=== PATIENT | male | born 1980 | race Caucasian/White ===

== ENCOUNTER 2016-10-13 21:39 | Emergency (ER) | payer OTHER ==
[~2016-10-13] VITALS: Ht 172.7 cm; Wt 63.5 kg
[2016-10-13 21:45] VITALS: BP 134/78
[2016-10-13] MEDS ORDERED: KETOROLAC TROMETHAMINE 30 MG/ML INJ. ONE (22:27)
[2016-10-13] MEDS ORDERED: SULF1TAB23 PO (22:47)
[2016-10-13] MEDS ORDERED: HYDR-971 PO (22:48)
--- NOTE | 2016-10-13 22:48 | PHYS DOC ---
Adult General Chief Complaint Chief Complaint: ABSCESS HPI HPI Patient is a 36 year old male who presents stating he has something growing on the tip of his coccyx for 2 days. Patient denies any fever. Denies any previous history of pilonidal cyst. Review of Systems Review of Systems Constitutional: Denies fever or chills [] Eyes: Denies change in visual acuity, redness, or eye pain [] Musculoskeletal: Denies back pain or joint pain [] Integument: Possible pilonidal cyst. Neurologic: Denies headache, focal weakness or sensory changes [] Endocrine: Denies polyuria or polydipsia [] Current Medications Current Medications Current Medications Medications (Trade) Dose Ordered Sig/Stuart Start Time Stop Time Status Last Admin Dose Admin Diphtheria/ Tetanus/Acell Pertussis (Boostrix) 0.5 ml ONCE ONCE 10/13/16 23:00 10/13/16 23:01 10/13/16 22:37 0.5 ML Ketorolac Tromethamine (Toradol Im) 60 mg 1X ONCE 10/13/16 23:00 10/13/16 23:01 10/13/16 22:37 60 MG Ketorolac Tromethamine (Toradol) 30 mg STK-MED ONCE 10/13/16 22:27 10/13/16 22:28 DC Allergies Allergies Allergies Coded Allergies Type Severity Reaction Last Updated Verified cephalexin Allergy Intermediate hives 10/13/16 Yes Physical Exam Physical Exam Constitutional: Well developed, well nourished, no acute distress, non-toxic appearance. [] HENT: Normocephalic, atraumatic, bilateral external ears normal, oropharynx moist, no oral exudates, nose normal. [] Eyes: PERRLA, EOMI, conjunctiva normal, no discharge. [] Skin: Coccyx with a tiny pimple suspicious of a pilonidal cyst. There is no fluctuance to the area. There is no erythema to the area. There is no warmth to the area. The area is very tender to touch. Back: No tenderness, no CVA tenderness. [] Extremities: No tenderness, no cyanosis, no clubbing, ROM intact, no edema. [] Neurologic: Alert and oriented X 3, normal motor function, normal sensory function, no focal deficits noted. [] Psychologic: Affect normal, judgement normal, mood normal. [] EKG EKG [] Radiology/Procedures Radiology/Procedures [] Course & Med Decision Making Course & Med Decision Making Pertinent Labs and Imaging studies reviewed. (See chart for details) Patient has a possible pilonidal cyst forming on his coccyx, the cyst is not ready to be drained. He was given tetanus in the ED. He was discharged with Bactrim for 10 days. Follow-up with his own doctor or the provided general surgeon in 3-7 days. Warm compresses recommended to the area. Dragon Disclaimer Dragon Disclaimer This electronic medical record was generated, in whole or in part, using a voice recognition dictation system. Departure Departure Impression: Primary Impression: Pilonidal cyst Disposition: 01 HOME, SELF-CARE Condition: STABLE Referrals: MARVIN BRICEÑO (PCP) MONICO CHÁVEZ MD see in the next 3-7 days or your own doctor Patient Instructions: Pilonidal Cyst Additional Instructions: You have a cyst on your rectal area, the cyst is not ready to be drained. Please follow-up with the provided general surgeon or your primary care doctor in the next 3-7 days. Complete your antibiotics. Scripts Hydrocodone/Apap 5-325 (NORCO 5-325 TABLET) 1 Each Tablet 1-2 TAB PO Q4-6HRS, #20 TAB Prov: ZAC MOLINA APRN 10/13/16 Sulfamethoxazole/Trimethoprim (BACTRIM 400-80 MG TABLET) 1 Each Tablet 1 TAB PO BID, #20 TAB Prov: ZAC MOLINA APRN 10/13/16 ZAC MOLINA APRN Oct 13, 2016 22:48
[2016-10-13] MEDS ORDERED: DIPHTH,PERTUSS(ACELL),TET TOX 0.5 ML DISP.SYRIN. VAX IM ONE (23:00)
[2016-10-13] MEDS ORDERED: KETOROLAC TROMETHAMINE 60 MG/2 ML INJ. IM ONE (23:00)
== END 2016-10-13 22:51 | disposition home or self-care (01) ==
LOC: ER 21:39
DX: L05.91 Pilonidal cyst without abscess (principal); Z23 Encounter for immunization
CPT/HCPCS: 90471; 90715; 96372; 99284; J1885

== ENCOUNTER 2020-01-11 13:08 | Inpatient (IN) | payer SELFPAY ==
[2020-01-11] VITALS (9 sets, daily range): BP systolic 136–187; BP diastolic 66–97
[~2020-01-11] VITALS: Ht 180.3 cm; Wt 76.2 kg
[~2020-01-11 13:08] MED LIST: HYDR-3164 PO; SULF1TAB23 PO
[2020-01-11] MEDS ORDERED: IV NORMAL SALINE 1000ML BAG 1,000 ML IV ONE ×3 (14:00→18:00)
[2020-01-11 14:05] LABS: BASO % 0 % (0-3); EOS % 0 % (0-3); HEMATOCRIT 32.8 % (39.0-53.0); HEMOGLOBIN 9.9 g/dL (13.0-17.5); LYMPH # 0.4 x10^3/uL (1.0-4.8); LYMPH % 3 % (24-48); MEAN CORPUSCULAR HEMOGLOBIN 29 pg (25-35); MEAN CORPUSCULAR HGB CONC 30 g/dL (31-37); MEAN CORPUSCULAR VOLUME 98 fL (79-100); MONO # 0.4 x10^3/uL (0.0-1.1); MONO % 3 % (0-9); NEUT # 12.3 x10^3/uL (1.8-7.7); NEUT % 94 % (31-73); PLATELET COUNT 240 x10^3/uL (140-400); RED BLOOD COUNT 3.37 x10^6/uL (4.30-5.70); RED CELL DISTRIBUTION WIDTH 13.5 % (11.5-14.5); WHITE BLOOD COUNT 13.1 x10^3/uL (4.0-11.0)
[2020-01-11 14:21] LABS: ALBUMIN 1.7 g/dL (3.4-5.0); ALBUMIN/GLOBULIN RATIO 0.4 (1.0-1.7); CALCIUM 6.8 mg/dL (8.5-10.1); CREATININE 6.6 mg/dL (0.7-1.3); GFR 9.4; POTASSIUM 5.9 mmol/L (3.5-5.1); TOTAL BILIRUBIN 0.2 mg/dL (0.2-1.0); TOTAL PROTEIN 5.8 g/dL (6.4-8.2)
[2020-01-11] MEDS ORDERED: ONDANSETRON PF 4 MG/2 ML VIAL. IVP ONE (14:30)
[2020-01-11] MEDS ORDERED: POTASSIUM CHLORIDE 10MEQ 100 ML IV PRN ×3 (14:45)
[2020-01-11] MEDS ORDERED: INSULIN,REGULAR 100 UNIT DRIP 100 ML IV ONE (15:00)
[2020-01-11 15:20] LABS: % BANDS 2 % (0-9); % LYMPHS 2 % (24-48); % MONOS 2 % (0-10); % SEGS 94 % (35-66); PLATELET CLUMP PRESENT; PLT ESTIMATE ADEQUATE (ADEQUATE); TOXIC GRANULATION SLIGHT; TOXIC VACUOLATION SLIGHT
--- NOTE | 2020-01-11 15:39 | EKG ---
[facility] [address] [place] [address] Test Date: 2020-01-11 Test Time: 15:00:27 Pat Name: LORETTA PURCELL Department: Room: Gender: M Rn Urgent Care: : 1980 Requested By: ZAC MOLINA Order Number: [id number] Reading MD: Measurements Intervals [place] Rate: 85 P: 45 AL: 132 QRS: -24 QRSD: 82 T: 49 QT: 380 QTc: 452 Interpretive Statements SINUS RHYTHM LEFTWARD AXIS QRS(T) CONTOUR ABNORMALITY CONSISTENT WITH ANTEROSEPTAL INFARCT AGE UNDETERMINED ABNORMAL ECG RI6.02 No previous ECG available for comparison
[2020-01-11 16:45] LABS: CALCIUM 6.7 mg/dL (8.5-10.1); CREATININE 6.3 mg/dL (0.7-1.3); GFR 9.9; POTASSIUM 4.8 mmol/L (3.5-5.1)
[2020-01-11 16:56] LABS: BILIRUBIN,URINE NEGATIVE (NEG); CLARITY,URINE CLEAR; COLOR,URINE YELLOW; NITRITE,URINE NEGATIVE (NEG); PROTEIN,URINE >=300 mg/dL (NEG-TRACE); UROBILINOGEN,URINE 0.2 mg/dL (0.2 mg/dL)
[2020-01-11 17:01] LABS: BARBITURATES NEG (NEG); BENZODIAZEPINES POS (NEG); CANNABINOIDS NEG (NEG); COCAINE NEG (NEG); METHADONE NEG (NEG); OPIATES NEG (NEG); PHENCYCLIDINE NEG (NEG)
[2020-01-11 17:05] LABS: AMPHETAMINE/METHAMPHETAMINE POS (NEG)
[2020-01-11 17:17] LABS: BACTERIA,URINE 0 /HPF (0-FEW); RBC,URINE OCC /HPF (0-2); WBC,URINE RARE /HPF (0-4)
[2020-01-11 17:51] LABS: CALCIUM 6.8 mg/dL (8.5-10.1); CREATININE 6.5 mg/dL (0.7-1.3); GFR 9.5; POTASSIUM 4.4 mmol/L (3.5-5.1)
[2020-01-11] MEDS ORDERED: ACETAMINOPHEN 325 MG TABLET. PO PRN (18:00)
[2020-01-11] MEDS ORDERED: ONDANSETRON PF 4 MG/2 ML VIAL. IV PRN (18:00)
--- NOTE | 2020-01-11 18:00 | NUR ---
Patient admitted to room 107 from ED with HHNK and hyponatremia. Patient is A/O x4 but impulsive. Consult called to Dr Griffith. Orders received to follow DKA protocol with lab draws Q2HRS. Caban placed with 550ml out at time of placement.
--- NOTE | 2020-01-11 18:06 | PHYS DOC ---
Past Medical History Past Medical History: Diabetes-Type I Additional Past Medical Histor: NEUROPATHY, STAGE 2 KIDNEY DISEASE (ZAC MOLINA APRN) Past Surgical History: No Surgical History (ZAC MOLINA APRN) Smoking Status: Current Every Day Smoker Alcohol Use: Occasionally Drug Use: None (ZAC MOLINA APRN) General Adult EDM: Chief Complaint: HYPERGLYCEMIA HPI: HPI: Patient is a 40 year old male with history of diabetes type 1 on insulin, who presents to the ED today to be evaluated for hyperglycemia. Patient reports his home glucometer was not able to read his glucose because it was very high. Patient states he used to be on Lantus and was switched over to a different insulin which he has not used for unknown period of time. Patient states this morning he started having nausea and vomiting. [] (ZAC MOLINA APRN) Review of Systems: Review of Systems: Constitutional: Denies fever or chills. [] Eyes: Denies change in visual acuity. [] HENT: Denies nasal congestion or sore throat. [] Respiratory: Denies cough or shortness of breath. [] Cardiovascular: Denies chest pain or edema. [] GI: Reports nausea and vomiting. Denies abdominal pain, bloody stools or diarrhea. [] : Denies dysuria. [] Musculoskeletal: Denies back pain or joint pain. [] Integument: Denies rash. [] Neurologic: Denies headache, focal weakness or sensory changes. [] Endocrine: Reports hypoglycemia Lymphatic: Denies swollen glands. [] Psychiatric: Denies depression or anxiety. [] (ZAC MOLINA APRN) Heart Score: Risk Factors: Risk Factors: DM, Current or recent (<one month) smoker, HTN, HLP, family history of CAD, obesity. Risk Scores: Score 0 - 3: 2.5% MACE over next 6 weeks - Discharge Home Score 4 - 6: 20.3% MACE over next 6 weeks - Admit for Clinical Observation Score 7 - 10: 72.7% MACE over next 6 weeks - Early Invasive Strategies (ZAC MOLINA APRN) Current Medications: Current Medications Medications (Trade) Dose Ordered Sig/Stuart Start Time Stop Time Status Last Admin Dose Admin Insulin Human Regular 100 ml @ 18 mls/hr 1X ONCE 01/11/20 15:00 01/11/20 15:01 DC 01/11/20 15:22 18 MLS/HR Insulin Human Regular 100 unit/ Sodium Chloride 101 ml @ 0 mls/hr CONT PRN PRN 01/11/20 14:45 Ondansetron HCl (Zofran) 4 mg 1X ONCE 01/11/20 14:30 01/11/20 14:31 DC 01/11/20 14:07 4 MG Potassium Chloride/Water 100 ml @ 100 mls/hr PRN Q1HR PRN 01/11/20 14:45 Sodium Chloride 1,000 ml @ 1,000 mls/hr 1X ONCE 01/11/20 14:00 01/11/20 14:59 DC 01/11/20 14:06 1,000 MLS/HR (ZAC MOLINA [employer]LO[employer] CREATIVE CHAIRMAN) Allergies: Allergies: Allergies Coded Allergies Type Severity Reaction Last Updated Verified cephalexin Allergy Intermediate hives 10/13/16 Yes (ZAC MOLINA [employer]IVE CHAIRMAN) Physical Exam: PE: Constitutional: Well developed, well nourished, no acute distress, non-toxic appearance. [] HENT: Normocephalic, atraumatic, bilateral external ears normal, oropharynx moist, no oral exudates, nose normal. [] Eyes: PERRLA, EOMI, conjunctiva normal, no discharge. [] Neck: Normal range of motion, no tenderness, supple, no stridor. [] Cardiovascular:Heart rate regular rhythm, no murmur [] Lungs & Thorax: Bilateral breath sounds clear to auscultation [] Abdomen: Bowel sounds normal, soft, no tenderness, no masses, no pulsatile masses. [] Skin: Warm, dry, no erythema, no rash. [] Back: No tenderness, no CVA tenderness. [] Extremities: No tenderness, no cyanosis, no clubbing, ROM intact, +1 pedal edema Neurologic: Alert and oriented X 3, normal motor function, normal sensory function, no focal deficits noted. Hard to follow directions at times. Psychologic: Affect normal, judgement normal, mood normal. [] (MUTUNGA,ZAC [employer]LO[employer] CREATIVE CHAIRMAN) Current Patient Data: Labs: Laboratory Tests Test 01/11/20 13:25 01/11/20 16:17 01/11/20 16:33 01/11/20 17:31 White Blood Count 13.1 x10^3/uL (4.0-11.0) H Red Blood Count 3.37 x10^6/uL (4.30-5.70) L Hemoglobin 9.9 g/dL (13.0-17.5) L Hematocrit 32.8 % (39.0-53.0) L Mean Corpuscular Volume 98 fL (79-100) Mean Corpuscular Hemoglobin 29 pg (25-35) Mean Corpuscular Hemoglobin Concent 30 g/dL (31-37) L Red Cell Distribution Width 13.5 % (11.5-14.5) Platelet Count 240 x10^3/uL (140-400) Neutrophils (%) (Auto) 94 % (31-73) H Lymphocytes (%) (Auto) 3 % (24-48) L Monocytes (%) (Auto) 3 % (0-9) Eosinophils (%) (Auto) 0 % (0-3) Basophils (%) (Auto) 0 % (0-3) Neutrophils # (Auto) 12.3 x10^3/uL (1.8-7.7) H Lymphocytes # (Auto) 0.4 x10^3/uL (1.0-4.8) L Monocytes # (Auto) 0.4 x10^3/uL (0.0-1.1) Eosinophils # (Auto) 0.0 x10^3/uL (0.0-0.7) Basophils # (Auto) 0.0 x10^3/uL (0.0-0.2) Segmented Neutrophils % 94 % (35-66) H Band Neutrophils % 2 % (0-9) Lymphocytes % 2 % (24-48) L Monocytes % 2 % (0-10) Toxic Granulation Slight Toxic Vacuolation Slight Platelet Estimate Adequate (ADEQUATE) Platelet Clumps, EDTA Present Sodium Level 107 mmol/L (136-145) *L 111 mmol/L (136-145) *L 114 mmol/L (136-145) *L Potassium Level 5.9 mmol/L (3.5-5.1) H 4.8 mmol/L (3.5-5.1) # 4.4 mmol/L (3.5-5.1) Chloride Level 73 mmol/L (98-107) L 78 mmol/L (98-107) L 80 mmol/L (98-107) L Carbon Dioxide Level 26 mmol/L (21-32) 26 mmol/L (21-32) 26 mmol/L (21-32) Anion Gap 8 (6-14) 7 (6-14) 8 (6-14) Blood Urea Nitrogen 93 mg/dL (8-26) H 99 mg/dL (8-26) H 97 mg/dL (8-26) H Creatinine 6.6 mg/dL (0.7-1.3) H 6.3 mg/dL (0.7-1.3) H 6.5 mg/dL (0.7-1.3) H Estimated GFR (Cockcroft-Gault) 9.4 9.9 9.5 BUN/Creatinine Ratio 14 (6-20) Glucose Level 1864 mg/dL (70-99) *H 1620 mg/dL (70-99) *H 1477 mg/dL (70-99) *H Calcium Level 6.8 mg/dL (8.5-10.1) L 6.7 mg/dL (8.5-10.1) L 6.8 mg/dL (8.5-10.1) L Phosphorus Level 8.7 mg/dL (2.6-4.7) H Total Bilirubin 0.2 mg/dL (0.2-1.0) Aspartate Amino Transferase (AST) 101 U/L (15-37) H Alanine Aminotransferase (ALT) 65 U/L (16-63) H Alkaline Phosphatase 146 U/L (46-116) H Total Protein 5.8 g/dL (6.4-8.2) L Albumin 1.7 g/dL (3.4-5.0) L Albumin/Globulin Ratio 0.4 (1.0-1.7) L Lipase 105 U/L (73-393) Ethyl Alcohol Level < 10 mg/dL (0-10) Acetone Level Neg (NEG) Urine Collection Type Unknown Urine Color Yellow Urine Clarity Clear Urine pH 7.0 (<5.0-8.0) Urine Specific [place] 1.025 (1.000-1.030) Urine Protein >=300 mg/dL (NEG-TRACE) Urine Glucose (UA) >=1000 mg/dL (NEG) Urine Ketones (Stick) Negative mg/dL (NEG) Urine Blood Large (NEG) Urine Nitrite Negative (NEG) Urine Bilirubin Negative (NEG) Urine Urobilinogen Dipstick 0.2 mg/dL (0.2 mg/dL) Urine Leukocyte Esterase Negative (NEG) Urine RBC Occ /HPF (0-2) Urine WBC Rare /HPF (0-4) Urine Squamous Epithelial Cells None /LPF Urine Bacteria 0 /HPF (0-FEW) Urine Opiates Screen Neg (NEG) Urine Methadone Screen Neg (NEG) Urine Barbiturates Neg (NEG) Urine Phencyclidine Screen Neg (NEG) Urine Amphetamine/Methamphetamine Pos (NEG) Urine Benzodiazepines Screen Pos (NEG) Urine Cocaine Screen Neg (NEG) Urine Cannabinoids Screen Neg (NEG) Urine Ethyl Alcohol Neg (NEG) Laboratory Tests 01/11/20 13:25 Laboratory Tests 01/11/20 13:25 01/11/20 16:17 01/11/20 17:31 Vital Signs: Vital Signs Date Time Temp Pulse Resp B/P (MAP) Pulse Ox O2 Delivery O2 Flow Rate FiO2 01/11/20 17:48 88 16 171/88 (115) 99 Room Air 01/11/20 13:13 97.7 97.7 (ZAC MOLINA APRN) EKG: EK interpreted by Dr. Ferreira sinus rhythm HR 85 no STEMI[] (ZAC MOLINA APRN) Radiology/Procedures: Radiology/Procedures: [] (ZAC MOLINA APRN) Course & Med Decision Making: Course & Med Decision Making Pertinent Labs and Imaging studies reviewed. (See chart for details) This is a type I diabetic patient presenting to the ED today with hyperglycemia and nausea and vomiting since this morning. It is unknown when he last used his insulin. He appears noncompliant. CBC with a WBC of 13.1, hemoglobin 9.9, hematocrit 32.8. CMP with glucose of 1846, anion gap is 8, creatinine 6.6, BUN 93, potassium 5.9, uncorrected sodium of 107. Vitals temperature 97.7, heart rate 87, respiration 18, blood pressure 184/96, O2 sats 96% on room air. Patient was started of DKA protocol, 2 L of IV fluids were infused in the ED. Spoke with Dr. Griffith nephrology who will follow up with patient Spoke with Dr. Villatoro who accepted patient for admission (ZAC MOLINA APRN) Dragon Disclaimer: Dragon Disclaimer: This electronic medical record was generated, in whole or in part, using a voice recognition dictation system. (ZAC MOLINA APRN) Departure Departure Impression: Primary Impression: DKA (diabetic ketoacidoses) Qualified Codes: E10.10 - Type 1 diabetes mellitus with ketoacidosis without coma Additional Impressions: Acute renal failure Qualified Codes: N17.9 - Acute kidney failure, unspecified Anemia Qualified Codes: D64.9 - Anemia, unspecified Disposition: ADMITTED INPATIENT Condition: STABLE Referrals: MARVIN BRICEÑO (PCP) Justicifation of Admission Dx: Justifications for Admission: Justification of Admission Dx: Yes Acute Renal Failure: 3-Fold Rise in Serum Crea DKA: DKA (ZAC MOLINA APRN) Attending Signature Attending Signature I have reviewed the PA/INCOME TAX ADJUSTER's note and plan of care. I was available for consultation as needed during the patient's visit in the emergency department. I agree with the clinical impression, plan, and disposition. (ÁNGEL FERREIRA DO) ZAC MOLINA APRN Jan 11, 2020 18:06 ÁNGEL FERREIRA DO Jan 12, 2020 06:23
[2020-01-11] MEDS: IV NORMAL SALINE 1000ML BAG 1,000 ML IV SCH ×2 (18:30→22:30)
[2020-01-11] MEDS ORDERED: hydrALAZINE 20 MG/ML VIAL. IVP PRN (19:15)
[2020-01-11] MEDS: POTASSIUM CHLORIDE 10MEQ 100 ML IV SCH ×4 (19:21→23:00)
--- NOTE | 2020-01-11 19:59 | HP ---
ADMIT DATE: 01/11/2020 CHIEF COMPLAINT: Hyperglycemia. HISTORY OF PRESENT ILLNESS: The patient is a pleasant 40-year-old male who does not take his insulin. He came to the ER with severely high glucose. It is actually the highest I have seen at 1864. Surprisingly, he does not have an anion gap metabolic acidosis. He does have severe profound hyponatremia with a sodium of 107. I discussed the case with ER physician. We are going to admit the patient with DKA protocol on insulin drip and IV fluids. It should be noted that the patient is very weak, can barely talk, but he does complain of weakness. PAST MEDICAL HISTORY: Noncompliance, diabetes, neuropathy, tobacco abuse. ALLERGIES: CEPHALEXIN. FAMILY HISTORY: Diabetes. SOCIAL HISTORY: I think he works at ____. He does not drink or take drugs. MEDICATIONS: Reviewed, please refer to the MRAD. REVIEW OF SYSTEMS: Unable to obtain. The patient really cannot talk much. PHYSICAL EXAMINATION: VITALS: Within normal limits and are stable. GENERAL: He is extremely weak and he can barely talk. HEENT: Normal cephalic atraumatic, external auditory canals are patent EYES: Extraocular muscles are intact, pupils are equally round and reactive to light and accommodation MUSCULOSKELETAL: Well developed, well nourished, good range of motion ENDOCRINE: No thyromegaly was palpated LYMPHATICS: No cervical chain or axillary nodes were noted HEMATOPOIETIC: No bruising NECK: Supple, no JVD, no thyromegaly was noted. LUNGS: Clear to auscultation in all lung gagnon without rhonchi or wheezing. HEART: RRR, S1, S2 present. Peripheral pulses intact, no obvious murmurs were noted. ABDOMEN: Soft, nontender. Positive bowel sounds no organomegaly, normal bowel sounds. EXTREMITIES: Without any cyanosis, clubbing, or edema. Pedal pulses intact, Homans sign is negative. NEUROLOGIC: He is extremely weak, he can barely talk. PSYCHIATRIC: He seems depressed. SKIN: No ulcerations or rashes, good skin turgor, no jaundice. VASCULAR: Good capillary refill, neurovascular bundle appears to be intact. LABORATORY DATA: White count 13, hemoglobin 9.9, platelets 240. Electrolytes: Sodium 107, potassium 5.9, chloride 73, bicarbonate 26, BUN 93, creatinine 6.6, glucose 1864. ASSESSMENT AND PLAN: Severe hyperglycemia with severe hyponatremia, although I suspect the patient will be admitted to the ICU on insulin drip, IV fluids, DKA protocol, home meds, DVT prophylaxis. Full code. Consult Dr. Freitas. Serial phosphorus and magnesium levels, p.r.n. Tylenol, p.r.nMarquez Lewis. Serum osmolality. LONG-TERM PROGNOSIS: Guarded. MARIAN BALTAZAR DO DR: TERESA/michell JOB#: [id number] / [id number]
[2020-01-11] MEDS: INSULIN REGULAR VIAL 100 UNIT in IV NORMAL SALINE 100ML 100 ML IV PRN (20:06)
[2020-01-11 20:47] LABS: CALCIUM 7.2 mg/dL (8.5-10.1); CREATININE 6.3 mg/dL (0.7-1.3); GFR 9.9; MAGNESIUM 2.6 mg/dL (1.8-2.4); POTASSIUM 4.2 mmol/L (3.5-5.1)
[2020-01-11 22:29] LABS: CALCIUM 7.2 mg/dL (8.5-10.1); CREATININE 6.2 mg/dL (0.7-1.3); GFR 10.1; MAGNESIUM 2.5 mg/dL (1.8-2.4); PHOSPHORUS 5.6 mg/dL (2.6-4.7); POTASSIUM 3.7 mmol/L (3.5-5.1)
[2020-01-12] VITALS (19 sets, daily range): BP systolic 124–173; BP diastolic 59–100
[2020-01-12 01:08] LABS: CALCIUM 7.1 mg/dL (8.5-10.1); CREATININE 6.1 mg/dL (0.7-1.3); GFR 10.3; MAGNESIUM 2.2 mg/dL (1.8-2.4); PHOSPHORUS 4.6 mg/dL (2.6-4.7); POTASSIUM 3.6 mmol/L (3.5-5.1)
[2020-01-12] MEDS: POTASSIUM CHLORIDE 10MEQ 100 ML IV SCH ×3 (01:37→04:30)
[2020-01-12] MEDS: MORPHINE SULFATE 2 MG/ML VIAL. IV PRN ×3 (03:35→19:54)
[2020-01-12] MEDS: IV DEXTROSE 5% - 0.9 % NACL 1,000 ML IV SCH ×2 (04:30→08:31)
[2020-01-12 06:46] LABS: HEMATOCRIT 29.8 % (39.0-53.0); HEMOGLOBIN 10.2 g/dL (13.0-17.5); RED BLOOD COUNT 3.51 x10^6/uL (4.30-5.70); RED CELL DISTRIBUTION WIDTH 13.3 % (11.5-14.5); WHITE BLOOD COUNT 15.4 x10^3/uL (4.0-11.0)
[2020-01-12 07:00] LABS: ALBUMIN 1.5 g/dL (3.4-5.0); ALBUMIN/GLOBULIN RATIO 0.5 (1.0-1.7); CALCIUM 7.1 mg/dL (8.5-10.1); CREATININE 5.5 mg/dL (0.7-1.3); GFR 11.6; POTASSIUM 3.9 mmol/L (3.5-5.1); TOTAL BILIRUBIN 0.1 mg/dL (0.2-1.0); TOTAL PROTEIN 4.5 g/dL (6.4-8.2)
[2020-01-12] MEDS ORDERED: DEXTROSE 50% 25 GM / 50ML DISP.SYRIN. IV ONE (07:29)
[2020-01-12 07:34] LABS: MAGNESIUM 2.2 mg/dL (1.8-2.4); PHOSPHORUS 4.1 mg/dL (2.6-4.7)
[2020-01-12] MEDS ORDERED: DEXTROSE 50% 25 GM / 50ML DISP.SYRIN. IV PRN (07:45)
[2020-01-12] MEDS: INSULIN REGULAR VIAL 100 UNIT in IV NORMAL SALINE 100ML 100 ML IV PRN (07:57)
[2020-01-12] MEDS: INSULIN GLARGINE SYRINGE. SQ SCH ×2 (08:33→21:00)
[2020-01-12] MEDS ORDERED: INSULIN LISPRO 300 UNITS/3 ML VIAL. SQ SCH (09:00)
[2020-01-12] MEDS ORDERED: cefTRIAXone IV Push 1 GM VIAL. IVP SCH (09:00)
[2020-01-12] MEDS ORDERED: LOSA100T14 PO (09:33)
[2020-01-12] MEDS ORDERED: INSU100I13 SQ (09:33)
[2020-01-12] MEDS ORDERED: DIAZEPAM10 MG PO (09:33)
[2020-01-12] MEDS ORDERED: FURO20TA3 PO (09:33)
[2020-01-12] MEDS ORDERED: PRAM0.255 PO (09:33)
[2020-01-12] MEDS ORDERED: AMLO10TA8 PO (09:33)
[2020-01-12] MEDS ORDERED: INSU100V6 SQ (09:34)
--- NOTE | 2020-01-12 10:19 | PDOC ---
[employer] PROGRESS NOTE Date of Service DOS: DATE: 01/12/20 TIME: 10:17 Chief Complaint Chief Complaint Severe HONK Methamphetamine abuse Noncompliance Diabetes Chronic renal failure/acute kidney injury History of Present Illness History of Present Illness 01/12/2020 Patient seen and examined in the ICU His glucose is finally down to normal (was as high as 1864 yesterday) Chart reviewed Discussed with RN Vitals/I&O Vitals/I&O: Vital Signs Date Time Temp Pulse Resp B/P (MAP) Pulse Ox O2 Delivery O2 Flow Rate FiO2 01/12/20 10:00 84 14 139/61 (87) 98 Room Air 01/12/20 08:00 98.4 98.4 I & O 01/11/20 01/11/20 01/12/20 15:00 23:00 07:00 Intake Total 2150 ml 2200 ml Output Total 1700 ml 1875 ml Balance 450 ml 325 ml Physical Exam General: Cooperative Heart: Regular rate Lungs: Clear Abdomen: Normal bowel sounds Extremities: Other (1+ edema) Skin: No rashes Labs Labs: Laboratory Tests Test 01/11/20 13:25 01/11/20 16:17 01/11/20 16:33 01/11/20 17:31 White Blood Count 13.1 x10^3/uL (4.0-11.0) Red Blood Count 3.37 x10^6/uL (4.30-5.70) Hemoglobin 9.9 g/dL (13.0-17.5) Hematocrit 32.8 % (39.0-53.0) Mean Corpuscular Volume 98 fL (79-100) Mean Corpuscular Hemoglobin 29 pg (25-35) Mean Corpuscular Hemoglobin Concent 30 g/dL (31-37) Red Cell Distribution Width 13.5 % (11.5-14.5) Platelet Count 240 x10^3/uL (140-400) Neutrophils (%) (Auto) 94 % (31-73) Lymphocytes (%) (Auto) 3 % (24-48) Monocytes (%) (Auto) 3 % (0-9) Eosinophils (%) (Auto) 0 % (0-3) Basophils (%) (Auto) 0 % (0-3) Neutrophils # (Auto) 12.3 x10^3/uL (1.8-7.7) Lymphocytes # (Auto) 0.4 x10^3/uL (1.0-4.8) Monocytes # (Auto) 0.4 x10^3/uL (0.0-1.1) Eosinophils # (Auto) 0.0 x10^3/uL (0.0-0.7) Basophils # (Auto) 0.0 x10^3/uL (0.0-0.2) Segmented Neutrophils % 94 % (35-66) Band Neutrophils % 2 % (0-9) Lymphocytes % 2 % (24-48) Monocytes % 2 % (0-10) Toxic Granulation Slight Toxic Vacuolation Slight Platelet Estimate Adequate (ADEQUATE) Platelet Clumps, EDTA Present Sodium Level 107 mmol/L (136-145) 111 mmol/L (136-145) 114 mmol/L (136-145) Potassium Level 5.9 mmol/L (3.5-5.1) 4.8 mmol/L (3.5-5.1) 4.4 mmol/L (3.5-5.1) Chloride Level 73 mmol/L (98-107) 78 mmol/L (98-107) 80 mmol/L (98-107) Carbon Dioxide Level 26 mmol/L (21-32) 26 mmol/L (21-32) 26 mmol/L (21-32) Anion Gap 8 (6-14) 7 (6-14) 8 (6-14) Blood Urea Nitrogen 93 mg/dL (8-26) 99 mg/dL (8-26) 97 mg/dL (8-26) Creatinine 6.6 mg/dL (0.7-1.3) 6.3 mg/dL (0.7-1.3) 6.5 mg/dL (0.7-1.3) Estimated GFR (Cockcroft-Gault) 9.4 9.9 9.5 BUN/Creatinine Ratio 14 (6-20) Glucose Level 1864 mg/dL (70-99) 1620 mg/dL (70-99) 1477 mg/dL (70-99) Calcium Level 6.8 mg/dL (8.5-10.1) 6.7 mg/dL (8.5-10.1) 6.8 mg/dL (8.5-10.1) Phosphorus Level 8.7 mg/dL (2.6-4.7) 7.0 mg/dL (2.6-4.7) Total Bilirubin 0.2 mg/dL (0.2-1.0) Aspartate Amino Transf (AST/SGOT) 101 U/L (15-37) Alanine Aminotransferase (ALT/SGPT) 65 U/L (16-63) Alkaline Phosphatase 146 U/L (46-116) Total Protein 5.8 g/dL (6.4-8.2) Albumin 1.7 g/dL (3.4-5.0) Albumin/Globulin Ratio 0.4 (1.0-1.7) Lipase 105 U/L (73-393) Ethyl Alcohol Level < 10 mg/dL (0-10) Acetone Level Neg (NEG) Urine Collection Type Unknown Urine Color Yellow Urine Clarity Clear Urine pH 7.0 (<5.0-8.0) Urine Specific [place] 1.025 (1.000-1.030) Urine Protein >=300 mg/dL (NEG-TRACE) Urine Glucose (UA) >=1000 mg/dL (NEG) Urine Ketones (Stick) Negative mg/dL (NEG) Urine Blood Large (NEG) Urine Nitrite Negative (NEG) Urine Bilirubin Negative (NEG) Urine Urobilinogen Dipstick 0.2 mg/dL (0.2 mg/dL) Urine Leukocyte Esterase Negative (NEG) Urine RBC Occ /HPF (0-2) Urine WBC Rare /HPF (0-4) Urine Squamous Epithelial Cells None /LPF Urine Bacteria 0 /HPF (0-FEW) Urine Opiates Screen Neg (NEG) Urine Methadone Screen Neg (NEG) Urine Barbiturates Neg (NEG) Urine Phencyclidine Screen Neg (NEG) Urine Amphetamine/Methamphetamine Pos (NEG) Urine Benzodiazepines Screen Pos (NEG) Urine Cocaine Screen Neg (NEG) Urine Cannabinoids Screen Neg (NEG) Urine Ethyl Alcohol Neg (NEG) Magnesium Level 2.5 mg/dL (1.8-2.4) Test 01/11/20 19:15 01/11/20 20:25 01/11/20 22:00 01/11/20 23:52 Glucose Level 1246 mg/dL (70-99) 1010 mg/dL (70-99) 739 mg/dL (70-99) Sodium Level 122 mmol/L (136-145) 126 mmol/L (136-145) Potassium Level 4.2 mmol/L (3.5-5.1) 3.7 mmol/L (3.5-5.1) Chloride Level 86 mmol/L (98-107) 90 mmol/L (98-107) Carbon Dioxide Level 26 mmol/L (21-32) 26 mmol/L (21-32) Anion Gap 10 (6-14) 10 (6-14) Blood Urea Nitrogen 94 mg/dL (8-26) 93 mg/dL (8-26) Creatinine 6.3 mg/dL (0.7-1.3) 6.2 mg/dL (0.7-1.3) Estimated GFR (Cockcroft-Gault) 9.9 10.1 Calcium Level 7.2 mg/dL (8.5-10.1) 7.2 mg/dL (8.5-10.1) Phosphorus Level 6.0 mg/dL (2.6-4.7) 5.6 mg/dL (2.6-4.7) Magnesium Level 2.6 mg/dL (1.8-2.4) 2.5 mg/dL (1.8-2.4) Glucose (Fingerstick) 585 mg/dL (70-99) Test 01/12/20 00:20 01/12/20 00:59 01/12/20 02:02 01/12/20 03:07 Sodium Level 129 mmol/L (136-145) Potassium Level 3.6 mmol/L (3.5-5.1) Chloride Level 92 mmol/L (98-107) Carbon Dioxide Level 27 mmol/L (21-32) Anion Gap 10 (6-14) Blood Urea Nitrogen 88 mg/dL (8-26) Creatinine 6.1 mg/dL (0.7-1.3) Estimated GFR (Cockcroft-Gault) 10.3 Glucose Level 409 mg/dL (70-99) Calcium Level 7.1 mg/dL (8.5-10.1) Phosphorus Level 4.6 mg/dL (2.6-4.7) Magnesium Level 2.2 mg/dL (1.8-2.4) Glucose (Fingerstick) 397 mg/dL (70-99) 534 mg/dL (70-99) 300 mg/dL (70-99) Test 01/12/20 04:10 01/12/20 05:17 01/12/20 06:20 01/12/20 06:30 Glucose (Fingerstick) 234 mg/dL (70-99) 218 mg/dL (70-99) 265 mg/dL (70-99) White Blood Count 15.4 x10^3/uL (4.0-11.0) Red Blood Count 3.51 x10^6/uL (4.30-5.70) Hemoglobin 10.2 g/dL (13.0-17.5) Hematocrit 29.8 % (39.0-53.0) Mean Corpuscular Volume 85 fL (79-100) Mean Corpuscular Hemoglobin 29 pg (25-35) Mean Corpuscular Hemoglobin Concent 34 g/dL (31-37) Red Cell Distribution Width 13.3 % (11.5-14.5) Platelet Count 264 x10^3/uL (140-400) Sodium Level 135 mmol/L (136-145) Potassium Level 3.9 mmol/L (3.5-5.1) Chloride Level 100 mmol/L (98-107) Carbon Dioxide Level 23 mmol/L (21-32) Anion Gap 12 (6-14) Blood Urea Nitrogen 81 mg/dL (8-26) Creatinine 5.5 mg/dL (0.7-1.3) Estimated GFR (Cockcroft-Gault) 11.6 BUN/Creatinine Ratio 15 (-20) Glucose Level 94 mg/dL (70-99) Calcium Level 7.1 mg/dL (8.5-10.1) Phosphorus Level 4.1 mg/dL (2.6-4.7) Magnesium Level 2.2 mg/dL (1.8-2.4) Total Bilirubin 0.1 mg/dL (0.2-1.0) Aspartate Amino Transf (AST/SGOT) 100 U/L (15-37) Alanine Aminotransferase (ALT/SGPT) 71 U/L (16-63) Alkaline Phosphatase 126 U/L (46-116) Total Protein 4.5 g/dL (6.4-8.2) Albumin 1.5 g/dL (3.4-5.0) Albumin/Globulin Ratio 0.5 (1.0-1.7) Test 01/12/20 07:27 01/12/20 07:47 01/12/20 08:54 Glucose (Fingerstick) 63 mg/dL (70-99) 113 mg/dL (70-99) 92 mg/dL (70-99) Assessment and Plan Assessmemt and Plan Problems Medical Problems: (1) Acute renal failure Status: Acute (2) Anemia Status: Acute (3) DKA (diabetic ketoacidoses) Status: Acute Severe HONK Methamphetamine abuse Noncompliance Diabetes Chronic renal failure/acute kidney injury Plan We are changing him from insulin drip to subcu insulin Encourage p.o. intake We told him to stop doing methamphetamine Home meds DVT prophylaxis Full code Hope to transfer out of the ICU later today Long-term prognosis guarded if he does not quit doing the drugs and following his doctor's recommendations for insulin (I do not think he is taken any for quite some time) Comment Review of Relevant I have reviewed the following items brandy (where applicable) has been applied. Medications: Current Medications Medications (Trade) Dose Ordered Sig/Stuart Route PRN Reason Start Time Stop Time Status Last Admin Dose Admin Sodium Chloride 1,000 ml @ 1,000 mls/hr 1X ONCE IV 01/11/20 14:00 01/11/20 14:59 DC 01/11/20 14:05 Sodium Chloride 1,000 ml @ 1,000 mls/hr 1X ONCE IV 01/11/20 14:00 01/11/20 14:59 DC 01/11/20 14:06 Ondansetron HCl (Zofran) 4 mg 1X ONCE IVP 01/11/20 14:30 01/11/20 14:31 DC 01/11/20 14:07 Insulin Human Regular 100 unit/ Sodium Chloride 101 ml @ 0 mls/hr CONT PRN PRN IV PER PROTOCOL 01/11/20 14:45 01/12/20 07:57 Potassium Chloride/Water 100 ml @ 100 mls/hr PRN Q1HR PRN IV SEE COMMENTS 01/11/20 14:45 01/12/20 08:36 Insulin Human Regular 100 ml @ 18 mls/hr 1X ONCE IV 01/11/20 15:00 01/11/20 15:01 DC 01/11/20 15:22 Morphine Sulfate (Morphine Sulfate) 2 mg PRN Q2HR PRN IV PAIN 01/11/20 18:00 01/12/20 17:59 01/12/20 08:00 Sodium Chloride 1,000 ml @ 125 mls/hr 1X ONCE IV 01/11/20 18:00 01/12/20 01:59 DC 01/12/20 01:36 Sodium Chloride 1,000 ml @ 250 mls/hr Q4H IV 01/11/20 18:30 01/12/20 04:16 DC 01/11/20 22:30 Potassium Chloride/Water 100 ml @ 100 mls/hr Q1H IV 01/11/20 19:00 01/11/20 20:59 DC 01/11/20 20:09 Potassium Chloride/Water 100 ml @ 100 mls/hr Q1H IV 01/11/20 22:00 01/11/20 23:59 DC 01/11/20 23:00 Potassium Chloride/Water 100 ml @ 100 mls/hr Q1H IV 01/12/20 01:30 01/12/20 05:29 DC 01/12/20 04:30 Dextrose/Sodium Chloride 1,000 ml @ 250 mls/hr Q4H IV 01/12/20 04:30 01/12/20 08:31 Dextrose (Dextrose 50%-Water Syringe) 12.5 gm PRN Q15MIN PRN IV SEE COMMENTS 01/12/20 07:45 01/12/20 07:38 Insulin Glargine (Lantus Syringe) 35 unit BID SQ 01/12/20 09:00 01/12/20 08:33 Levofloxacin/ Dextrose 100 ml @ 100 mls/hr Q24H IV 01/12/20 09:00 01/12/20 09:36 Justifications for Admission Other Justification MARIAN BALTAZAR III DO Jan 12, 2020 10:19
[2020-01-12] MEDS: PRAMIPEXOLE 0.25 MG TABLET. PO SCH (10:42)
[2020-01-12] MEDS: amLODIPine BESYLATE 10 MG TABLET PO SCH (10:43)
[2020-01-12] MEDS: INSULIN LISPRO 300 UNITS/3 ML VIAL. SQ SCH ×2 (12:16→16:51)
[2020-01-12] MEDS ORDERED: IV 1/2 NORMAL SALINE 1,000 ML IV SCH (13:15)
--- NOTE | 2020-01-12 14:37 | RAD ---
RENAL COMPLETE BILATERAL History: Acute renal failure Comparison: None. Procedure: Transabdominal ultrasound images are obtained of the kidneys and bladder. Findings: Right kidney: measures 11.5 x 5.7 x 3.9 cm. Normal cortical echotexture. Corticomedullary differentiation is preserved. No hydronephrosis. Left kidney: measures 10.4 x 4.7 x 5.0 cm. Normal cortical echotexture. Corticomedullary differentiation is preserved. No hydronephrosis. Urinary bladder: Caban catheter noted within the urinary bladder. No wall thickening. Aorta not well seen due to overlying bowel gas. Patent IVC. IMPRESSION: 1. Unremarkable renal ultrasound. Electronically signed by: Lewis Spring DO (01/12/2020 2:34 PM) [facility]
--- NOTE | 2020-01-12 15:19 | CONS ---
DATE OF CONSULTATION: REQUESTING PHYSICIAN: Hospitalist. REASON FOR CONSULTATION: Acute renal failure. HISTORY OF PRESENT ILLNESS: This is a 40-year-old gentleman with history of type 1 diabetes mellitus. He presents to the hospital with diabetic ketoacidosis. Also, of note is of methamphetamine detection. Due to increased level of azotemia, Nephrology evaluation requested. PAST MEDICAL HISTORY: 1. Diabetes mellitus type 1, onset age 8 years of age. 2. Medical noncompliance. 3. Tobacco use. 4. Methamphetamine use. ALLERGIES: CEPHALEXIN. MEDICATIONS: Reviewed. FAMILY HISTORY: Of note for diabetes mellitus. SOCIAL HISTORY: The patient apparently does work. REVIEW OF SYSTEMS: The patient is confused and unobtainable. PHYSICAL EXAMINATION: GENERAL APPEARANCE: The patient appears stated age. He is mumbling and confused. HEENT: Clear other than dry mouth. NECK: No increased JVD. No thyromegaly, mass, or adenopathy. LUNGS: Clear. CARDIAC: Without S3 or rub. ABDOMEN: Soft, nontender, no bruits. EXTREMITIES: Without edema. NEUROLOGIC: Lethargic, mumbling. PSYCHIATRIC: Lethargic, mumbling. LABORATORY DATA: Toxicology positive for methamphetamine/amphetamine. Labs on presentation; sodium 107, potassium 5.9, chloride 73, CO2 of 26, glucose 1864, potassium 5.9, chloride 73, CO2 of 26, anion gap 8, BUN 93, creatinine 6.6. White count 15.4, hemoglobin 10.2, hematocrit 29.8, platelets are 264. Urinalysis negative for ketones, glucose greater than 1000, urine specific gravity 1.025, protein greater than 300 mg percent. IMPRESSION: 1. Diabetes mellitus with profound hyperglycemia. Does not appear to be in ketoacidosis. 2. Hyponatremia -- in part factitious due to severe hyperglycemia. He now likely has profound free water deficit due to glycosuria associated osmotic diuresis. 3. Acute renal failure -- in large part secondary to prerenal state, i.e., dehydration secondary to osmotic diuresis. May have underlying chronic kidney disease as well. 4. Proteinuria -- potentially indicative of underlying diabetic nephropathy. 5. Positive methamphetamine. RECOMMENDATIONS: 1. IV fluid administration. We will follow fluid and electrolyte balance. 2. Glucose management as you are doing. 3. Acute situation stabilizes, would assess 24-hour urine total protein. We will obtain renal ultrasound to follow. ÁNGEL FATIMA MD DR: HAILEY/michell JOB#: [id number] / [id number]
[2020-01-12] MEDS: IV DEXTROSE 5 %-0.45 % NACL 1,000 ML IV SCH (15:26)
--- NOTE | 2020-01-12 16:09 | NUR ---
Patient to transfer to room 432 from ICU room 107. Telephone report given to RAND Parrish. POC and med reconciliation reviewed. All belongings with patient.
[2020-01-12] MEDS: diazePAM 5 MG TABLET PO SCH (17:54)
--- NOTE | 2020-01-12 21:00 | NUR ---
Dr. Byrne called regarding insulin orders. Patient blood sugar per accucheck was 91. HS Lantus insulin held tonight. Will continue to monitor patient.
[2020-01-12] MEDS: LACTOBACILLUS RHAMNOSUS GG 1 CAPSULE. PO SCH (21:04)
[2020-01-13 04:00] VITALS: BP 163/80
[2020-01-13 04:38] LABS: ALBUMIN 1.4 g/dL (3.4-5.0); ALBUMIN/GLOBULIN RATIO 0.4 (1.0-1.7); CALCIUM 7.4 mg/dL (8.5-10.1); CREATININE 5.6 mg/dL (0.7-1.3); GFR 11.3; POTASSIUM 4.3 mmol/L (3.5-5.1); TOTAL BILIRUBIN 0.2 mg/dL (0.2-1.0); TOTAL PROTEIN 4.8 g/dL (6.4-8.2)
[2020-01-13 08:00] VITALS: BP 176/88
[2020-01-13] MEDS: INSULIN LISPRO 300 UNITS/3 ML VIAL. SQ SCH ×4 (08:00→17:00)
[2020-01-13] MEDS: PRAMIPEXOLE 0.25 MG TABLET. PO SCH (08:38)
[2020-01-13] MEDS: amLODIPine BESYLATE 10 MG TABLET PO SCH (08:38)
[2020-01-13] MEDS: LACTOBACILLUS RHAMNOSUS GG 1 CAPSULE. PO SCH ×2 (08:38→21:30)
[2020-01-13] MEDS: INSULIN GLARGINE SYRINGE. SQ SCH ×2 (08:58→21:37)
[2020-01-13 11:00] VITALS: BP 128/62
[2020-01-13] MEDS: IV DEXTROSE 5 %-0.45 % NACL 1,000 ML IV SCH (12:43)
[2020-01-13] MEDS ORDERED: DEXTROSE 50% 25 GM / 50ML DISP.SYRIN. IV PRN (13:30)
--- NOTE | 2020-01-13 13:35 | PDOC ---
[employer] PROGRESS NOTE Date of Service DOS: DATE: 01/13/20 TIME: 13:30 Chief Complaint Chief Complaint Severe HHS Methamphetamine abuse Severe protein malnutrition Diabetes type I since age 8, uncontrolled Acute on chronic kidney injury, CKD stage II Medical nonadherence Tobacco use Appreciate nephrology recommendation Pending protein collection for urinary analysis. Continue insulin glargine 35 units subcu twice daily, lispro 10 units 3 times daily with meals, and moderate R ISS Accu-Cheks every 6 Lovenox for DVT prophylaxis ADA diet Full code Discussed with RN and SW Disposition pending nephrology evaluation Surrogate decision maker is the self History of Present Illness History of Present Illness 01/12/2020 Patient seen and examined in the ICU His glucose is finally down to normal (was as high as 1864 yesterday) Chart reviewed Discussed with RN 01/13/2020 No acute events overnight. Patient transferred from the ICU. Clinically stable. Patient seen and examined bedside. Complains only of back pain at this time. Patient currently is unemployed and is reviewing unemployment benefits at this time. Our concern is that he is unable to afford Lantus once the patient is discharged. We will work with the patient and possibly with social science analyst to help him with medications. Patient's chart, labs, images were reviewed and discussed with RN Vitals/I&O Vitals/I&O: Vital Signs Date Time Temp Pulse Resp B/P (MAP) Pulse Ox O2 Delivery O2 Flow Rate FiO2 01/13/20 11:00 98.4 98 16 128/62 (84) 96 Room Air 98.4 I & O 01/12/20 01/12/20 01/13/20 15:00 23:00 07:00 Intake Total 731.36 ml 3754.4 ml 1950 ml Output Total 820 ml 1275 ml Balance -88.64 ml 3754.4 ml 675 ml Physical Exam Physical Exam: GEN: No apparent distress. Alert and oriented HEENT: Normal cephalic, atraumatic, external auditory canals are patent NECK: Supple, no JVD, no thyromegaly was noted LUNGS: Bilateral crackles HEART: RRR, S1, S2 present. Peripheral pulses intact, no obvious murmurs noted ABDOMEN: Soft, nontender. Positive bowel sounds, no organomegaly, normal terri wel sounds EXTREMITIES: Without clubbing, cyanosis, or edema. Pedal pulses intact. Negative Homans sign General: Cooperative Heart: Regular rate Lungs: Clear Abdomen: Normal bowel sounds Extremities: Other (1+ edema) Skin: No rashes Labs Labs: Laboratory Tests Test 01/12/20 15:14 01/12/20 16:43 01/12/20 20:44 01/13/20 03:50 Glucose (Fingerstick) 74 mg/dL (70-99) 87 mg/dL (70-99) 91 mg/dL (70-99) Sodium Level 137 mmol/L (136-145) Potassium Level 4.3 mmol/L (3.5-5.1) Chloride Level 101 mmol/L (98-107) Carbon Dioxide Level 25 mmol/L (21-32) Anion Gap 11 (6-14) Blood Urea Nitrogen 72 mg/dL (8-26) Creatinine 5.6 mg/dL (0.7-1.3) Estimated GFR (Cockcroft-Gault) 11.3 BUN/Creatinine Ratio 13 (-20) Glucose Level 193 mg/dL (70-99) Calcium Level 7.4 mg/dL (8.5-10.1) Total Bilirubin 0.2 mg/dL (0.2-1.0) Aspartate Amino Transf (AST/SGOT) 78 U/L (15-37) Alanine Aminotransferase (ALT/SGPT) 68 U/L (16-63) Alkaline Phosphatase 130 U/L (46-116) Total Protein 4.8 g/dL (6.4-8.2) Albumin 1.4 g/dL (3.4-5.0) Albumin/Globulin Ratio 0.4 (1.0-1.7) Test 01/13/20 07:30 01/13/20 11:29 Glucose (Fingerstick) 211 mg/dL (70-99) 218 mg/dL (70-99) Assessment and Plan Assessmemt and Plan Problems Medical Problems: (1) Acute renal failure Status: Acute (2) Anemia Status: Acute (3) DKA (diabetic ketoacidoses) Status: Acute Comment Review of Relevant I have reviewed the following items brandy (where applicable) has been applied. Medications: Current Medications Medications (Trade) Dose Ordered Sig/Stuart Route PRN Reason Start Time Stop Time Status Last Admin Dose Admin Diazepam (Valium) 10 mg QPM PO 01/12/20 18:00 01/12/20 17:54 Lactobacillus Rhamnosus (Culturelle) 1 cap BID PO 01/12/20 21:00 01/13/20 08:38 Dextrose/Sodium Chloride 1,000 ml @ 50 mls/hr Q20H IV 01/12/20 16:00 01/13/20 12:43 Morphine Sulfate (Morphine Sulfate) 2 mg PRN Q2HR PRN IV PAIN 01/12/20 19:45 01/12/20 19:54 Justifications for Admission Other Justification LEILA REBOLLAR MD Jan 13, 2020 13:35
--- NOTE | 2020-01-13 14:02 | PDOC ---
PROGRESS NOTES Date of Service DATE: 01/13/20 TIME: 14:00 Subjective Subjective SEEN IN FOLLOW UP OF ARF Objective Objective Vital Signs Date Time Temp Pulse Resp B/P (MAP) Pulse Ox O2 Delivery O2 Flow Rate FiO2 01/13/20 11:00 98.4 98 16 128/62 (84) 96 Room Air 98.4 Intake and Output 01/13/20 07:00 Intake Total 6435.76 ml Output Total 2095 ml Balance 4340.76 ml Intake Oral 2140 ml IV Total 3695.76 ml Other 600 ml Output Urine Total 2095 ml Physical Exam Abdomen: Normal bowel sounds, Soft, No tenderness, No hepatosplenomegaly, No masses Heart: Regular rate, Normal S1, Normal S2, No murmurs, Gallops Extremities: No clubbing, No cyanosis, No edema, Normal pulses, No tenderness/swelling General: Alert, Oriented X3, Cooperative, No acute distress Lungs: Clear to auscultation, Normal air movement Psych/Mental Status: Other (DYSPHORIC) Diagnosis RENAL FAILURE: Acute (Acute tubular necrosis) Assessment Assessment Problems Medical Problems: (1) Acute renal failure Status: Acute (2) Anemia Status: Acute (3) DKA (diabetic ketoacidoses) Status: Acute Plan Plan of Care GLUCOSE CONTROL IS BETTER. RENAL FUNCTION REMAINS VERY POOR. INFORMED HIM THAT IF DOES NOT IMPROVE HE MAY REQUIRE DIALYSIS. " I WANT TO GO HOME" Comment Review of Relevant I have reviewed the following items brandy (where applicable) has been applied. Labs Laboratory Tests Test 01/11/20 16:17 01/11/20 16:33 01/11/20 17:31 01/11/20 19:15 Sodium Level 111 mmol/L (136-145) 114 mmol/L (136-145) Potassium Level 4.8 mmol/L (3.5-5.1) 4.4 mmol/L (3.5-5.1) Chloride Level 78 mmol/L (98-107) 80 mmol/L (98-107) Carbon Dioxide Level 26 mmol/L (21-32) 26 mmol/L (21-32) Anion Gap 7 (6-14) 8 (6-14) Blood Urea Nitrogen 99 mg/dL (8-26) 97 mg/dL (8-26) Creatinine 6.3 mg/dL (0.7-1.3) 6.5 mg/dL (0.7-1.3) Estimated GFR (Cockcroft-Gault) 9.9 9.5 Glucose Level 1620 mg/dL (70-99) 1477 mg/dL (70-99) 1246 mg/dL (70-99) Calcium Level 6.7 mg/dL (8.5-10.1) 6.8 mg/dL (8.5-10.1) Urine Collection Type Unknown Urine Color Yellow Urine Clarity Clear Urine pH 7.0 (<5.0-8.0) Urine Specific [place] 1.025 (1.000-1.030) Urine Protein >=300 mg/dL (NEG-TRACE) Urine Glucose (UA) >=1000 mg/dL (NEG) Urine Ketones (Stick) Negative mg/dL (NEG) Urine Blood Large (NEG) Urine Nitrite Negative (NEG) Urine Bilirubin Negative (NEG) Urine Urobilinogen Dipstick 0.2 mg/dL (0.2 mg/dL) Urine Leukocyte Esterase Negative (NEG) Urine RBC Occ /HPF (0-2) Urine WBC Rare /HPF (0-4) Urine Squamous Epithelial Cells None /LPF Urine Bacteria 0 /HPF (0-FEW) Urine Opiates Screen Neg (NEG) Urine Methadone Screen Neg (NEG) Urine Barbiturates Neg (NEG) Urine Phencyclidine Screen Neg (NEG) Urine Amphetamine/Methamphetamine Pos (NEG) Urine Benzodiazepines Screen Pos (NEG) Urine Cocaine Screen Neg (NEG) Urine Cannabinoids Screen Neg (NEG) Urine Ethyl Alcohol Neg (NEG) Phosphorus Level 7.0 mg/dL (2.6-4.7) Magnesium Level 2.5 mg/dL (1.8-2.4) Test 01/11/20 20:25 01/11/20 22:00 01/11/20 23:52 01/12/20 00:20 Sodium Level 122 mmol/L (136-145) 126 mmol/L (136-145) 129 mmol/L (136-145) Potassium Level 4.2 mmol/L (3.5-5.1) 3.7 mmol/L (3.5-5.1) 3.6 mmol/L (3.5-5.1) Chloride Level 86 mmol/L (98-107) 90 mmol/L (98-107) 92 mmol/L (98-107) Carbon Dioxide Level 26 mmol/L (21-32) 26 mmol/L (21-32) 27 mmol/L (21-32) Anion Gap 10 (6-14) 10 (6-14) 10 (6-14) Blood Urea Nitrogen 94 mg/dL (8-26) 93 mg/dL (8-26) 88 mg/dL (8-26) Creatinine 6.3 mg/dL (0.7-1.3) 6.2 mg/dL (0.7-1.3) 6.1 mg/dL (0.7-1.3) Estimated GFR (Cockcroft-Gault) 9.9 10.1 10.3 Glucose Level 1010 mg/dL (70-99) 739 mg/dL (70-99) 409 mg/dL (70-99) Calcium Level 7.2 mg/dL (8.5-10.1) 7.2 mg/dL (8.5-10.1) 7.1 mg/dL (8.5-10.1) Phosphorus Level 6.0 mg/dL (2.6-4.7) 5.6 mg/dL (2.6-4.7) 4.6 mg/dL (2.6-4.7) Magnesium Level 2.6 mg/dL (1.8-2.4) 2.5 mg/dL (1.8-2.4) 2.2 mg/dL (1.8-2.4) Glucose (Fingerstick) 585 mg/dL (70-99) Test 01/12/20 00:59 01/12/20 02:02 01/12/20 03:07 01/12/20 04:10 Glucose (Fingerstick) 397 mg/dL (70-99) 534 mg/dL (70-99) 300 mg/dL (70-99) 234 mg/dL (70-99) Test 01/12/20 05:17 01/12/20 06:20 01/12/20 06:30 01/12/20 07:27 Glucose (Fingerstick) 218 mg/dL (70-99) 265 mg/dL (70-99) 63 mg/dL (70-99) White Blood Count 15.4 x10^3/uL (4.0-11.0) Red Blood Count 3.51 x10^6/uL (4.30-5.70) Hemoglobin 10.2 g/dL (13.0-17.5) Hematocrit 29.8 % (39.0-53.0) Mean Corpuscular Volume 85 fL (79-100) Mean Corpuscular Hemoglobin 29 pg (25-35) Mean Corpuscular Hemoglobin Concent 34 g/dL (31-37) Red Cell Distribution Width 13.3 % (11.5-14.5) Platelet Count 264 x10^3/uL (140-400) Sodium Level 135 mmol/L (136-145) Potassium Level 3.9 mmol/L (3.5-5.1) Chloride Level 100 mmol/L (98-107) Carbon Dioxide Level 23 mmol/L (21-32) Anion Gap 12 (6-14) Blood Urea Nitrogen 81 mg/dL (8-26) Creatinine 5.5 mg/dL (0.7-1.3) Estimated GFR (Cockcroft-Gault) 11.6 BUN/Creatinine Ratio 15 (-20) Glucose Level 94 mg/dL (70-99) Calcium Level 7.1 mg/dL (8.5-10.1) Phosphorus Level 4.1 mg/dL (2.6-4.7) Magnesium Level 2.2 mg/dL (1.8-2.4) Total Bilirubin 0.1 mg/dL (0.2-1.0) Aspartate Amino Transf (AST/SGOT) 100 U/L (15-37) Alanine Aminotransferase (ALT/SGPT) 71 U/L (16-63) Alkaline Phosphatase 126 U/L (46-116) Total Protein 4.5 g/dL (6.4-8.2) Albumin 1.5 g/dL (3.4-5.0) Albumin/Globulin Ratio 0.5 (1.0-1.7) Test 01/12/20 07:47 01/12/20 08:54 01/12/20 10:45 01/12/20 12:13 Glucose (Fingerstick) 113 mg/dL (70-99) 92 mg/dL (70-99) 163 mg/dL (70-99) 215 mg/dL (70-99) Test 01/12/20 15:14 01/12/20 16:43 01/12/20 20:44 01/13/20 03:50 Glucose (Fingerstick) 74 mg/dL (70-99) 87 mg/dL (70-99) 91 mg/dL (70-99) Sodium Level 137 mmol/L (136-145) Potassium Level 4.3 mmol/L (3.5-5.1) Chloride Level 101 mmol/L (98-107) Carbon Dioxide Level 25 mmol/L (21-32) Anion Gap 11 (6-14) Blood Urea Nitrogen 72 mg/dL (8-26) Creatinine 5.6 mg/dL (0.7-1.3) Estimated GFR (Cockcroft-Gault) 11.3 BUN/Creatinine Ratio 13 (6-20) Glucose Level 193 mg/dL (70-99) Calcium Level 7.4 mg/dL (8.5-10.1) Total Bilirubin 0.2 mg/dL (0.2-1.0) Aspartate Amino Transf (AST/SGOT) 78 U/L (15-37) Alanine Aminotransferase (ALT/SGPT) 68 U/L (16-63) Alkaline Phosphatase 130 U/L (46-116) Total Protein 4.8 g/dL (6.4-8.2) Albumin 1.4 g/dL (3.4-5.0) Albumin/Globulin Ratio 0.4 (1.0-1.7) Test 01/13/20 07:30 01/13/20 11:29 Glucose (Fingerstick) 211 mg/dL (70-99) 218 mg/dL (70-99) Laboratory Tests Test 01/12/20 15:14 01/12/20 16:43 01/12/20 20:44 01/13/20 03:50 Glucose (Fingerstick) 74 mg/dL (70-99) 87 mg/dL (70-99) 91 mg/dL (70-99) Sodium Level 137 mmol/L (136-145) Potassium Level 4.3 mmol/L (3.5-5.1) Chloride Level 101 mmol/L (98-107) Carbon Dioxide Level 25 mmol/L (21-32) Anion Gap 11 (6-14) Blood Urea Nitrogen 72 mg/dL (8-26) Creatinine 5.6 mg/dL (0.7-1.3) Estimated GFR (Cockcroft-Gault) 11.3 BUN/Creatinine Ratio 13 (6-20) Glucose Level 193 mg/dL (70-99) Calcium Level 7.4 mg/dL (8.5-10.1) Total Bilirubin 0.2 mg/dL (0.2-1.0) Aspartate Amino Transf (AST/SGOT) 78 U/L (15-37) Alanine Aminotransferase (ALT/SGPT) 68 U/L (16-63) Alkaline Phosphatase 130 U/L (46-116) Total Protein 4.8 g/dL (6.4-8.2) Albumin 1.4 g/dL (3.4-5.0) Albumin/Globulin Ratio 0.4 (1.0-1.7) Test 01/13/20 07:30 01/13/20 11:29 Glucose (Fingerstick) 211 mg/dL (70-99) 218 mg/dL (70-99) Medications Current Medications Sodium Chloride 1,000 ml @ 1,000 mls/hr 1X ONCE IV Last administered on 01/11/20at 14:05; Start 01/11/20 at 14:00; Stop 01/11/20 at 14:59; Status DC Sodium Chloride 1,000 ml @ 1,000 mls/hr 1X ONCE IV Last administered on 01/11/20at 14:06; Start 01/11/20 at 14:00; Stop 01/11/20 at 14:59; Status DC Ondansetron HCl (Zofran) 4 mg 1X ONCE IVP Last administered on 01/11/20at 14:07; Start 01/11/20 at 14:30; Stop 01/11/20 at 14:31; Status DC Insulin Human Regular 100 unit/ Sodium Chloride 101 ml @ 0 mls/hr CONT PRN PRN IV PER PROTOCOL Last administered on 01/12/20at 07:57; Start 01/11/20 at 14:45 Potassium Chloride/Water 100 ml @ 100 mls/hr PRN Q1HR PRN IV SEE COMMENTS Last administered on 01/12/20at 08:36; Start 01/11/20 at 14:45 Potassium Chloride/Water 100 ml @ 100 mls/hr PRN Q1HR PRN IV SEE COMMENTS; Start 01/11/20 at 14:45 Potassium Chloride/Water 100 ml @ 100 mls/hr PRN Q1HR PRN IV SEE COMMENTS; Start 01/11/20 at 14:45 Insulin Human Regular 100 ml @ 18 mls/hr 1X ONCE IV Last administered on 01/11/20at 15:22; Start 01/11/20 at 15:00; Stop 01/11/20 at 15:01; Status DC Ondansetron HCl (Zofran) 4 mg PRN Q8HRS PRN IV NAUSEA/VOMITING Last administered on 01/12/20at 12:44; Start 01/11/20 at 18:00; Stop 01/12/20 at 17:59; Status DC Morphine Sulfate (Morphine Sulfate) 2 mg PRN Q2HR PRN IV PAIN Last administered on 01/12/20at 08:00; Start 01/11/20 at 18:00; Stop 01/12/20 at 17:59; Status DC Acetaminophen (Tylenol) 650 mg PRN Q4HRS PRN PO FEVER > 100.3'F; Start 01/11/20 at 18:00; Stop 01/12/20 at 17:59; Status DC Sodium Chloride 1,000 ml @ 125 mls/hr 1X ONCE IV Last administered on 01/12/20at 01:36; Start 01/11/20 at 18:00; Stop 01/12/20 at 01:59; Status DC Sodium Chloride 1,000 ml @ 250 mls/hr Q4H IV Last administered on 01/11/20at 22:30; Start 01/11/20 at 18:30; Stop 01/12/20 at 04:16; Status DC Potassium Chloride/Water 100 ml @ 100 mls/hr Q1H IV Last administered on 01/11/20at 20:09; Start 01/11/20 at 19:00; Stop 01/11/20 at 20:59; Status DC Hydralazine HCl (Apresoline Inj) 10 mg PRN Q4HRS PRN IVP ELEVATED BP, SEE COMMENTS Last administered on 01/12/20at 12:16; Start 01/11/20 at 19:15 Potassium Chloride/Water 100 ml @ 100 mls/hr Q1H IV Last administered on 01/11/20at 23:00; Start 01/11/20 at 22:00; Stop 01/11/20 at 23:59; Status DC Potassium Chloride/Water 100 ml @ 100 mls/hr Q1H IV Last administered on 01/12/20at 04:30; Start 01/12/20 at 01:30; Stop 01/12/20 at 05:29; Status DC Dextrose/Sodium Chloride 1,000 ml @ 250 mls/hr Q4H IV Last administered on 01/12/20at 08:31; Start 01/12/20 at 04:30; Stop 01/12/20 at 12:23; Status DC Dextrose (Dextrose 50%-Water Syringe) 25 gm STK-MED ONCE IV ; Start 01/12/20 at 07:29; Stop 01/12/20 at 07:29; Status DC Dextrose (Dextrose 50%-Water Syringe) 12.5 gm PRN Q15MIN PRN IV SEE COMMENTS Last administered on 01/12/20at 07:38; Start 01/12/20 at 07:45; Stop 01/13/20 at 13:31; Status DC Insulin Glargine (Lantus Syringe) 35 unit BID SQ Last administered on 01/13/20at 08:58; Start 01/12/20 at 09:00 Ceftriaxone Sodium (Rocephin) 1 gm Q24H IVP ; Start 01/12/20 at 09:00; Status UNV Insulin Human Lispro (HumaLOG) 0-9 UNITS TIDWMEALS SQ ; Start 01/12/20 at 09:00; Stop 01/12/20 at 11:08; Status DC Levofloxacin/ Dextrose 100 ml @ 100 mls/hr Q24H IV Last administered on 01/13/20at 08:39; Start 01/12/20 at 09:00 Amlodipine Besylate (Norvasc) 10 mg DAILY PO Last administered on 01/13/20at 08:38; Start 01/12/20 at 10:00 Pramipexole Dihydrochloride (miraPEX) 0.25 mg DAILY PO Last administered on 01/13/20at 08:38; Start 01/12/20 at 10:00 Diazepam (Valium) 10 mg QPM PO Last administered on 01/12/20at 17:54; Start at 18:00 Insulin Human Lispro (HumaLOG) 10 units TIDWMEALS SQ Last administered on 01/13/20at 12:50; Start 01/12/20 at 12:00 Sodium Chloride 1,000 ml @ 150 mls/hr Q6H40M IV Last administered on 01/12/20at 13:27; Start 01/12/20 at 13:15; Stop 01/12/20 at 20:59; Status DC Lactobacillus Rhamnosus (Culturelle) 1 cap BID PO Last administered on 01/13/20at 08:38; Start 01/12/20 at 21:00 Dextrose/Sodium Chloride 1,000 ml @ 50 mls/hr Q20H IV Last administered on 01/13/20at 12:43; Start 01/12/20 at 16:00 Morphine Sulfate (Morphine Sulfate) 2 mg PRN Q2HR PRN IV PAIN Last administered on 01/12/20at 19:54; Start 01/12/20 at 19:45 Insulin Human Lispro (HumaLOG) 0-7 UNITS TIDWMEALS SQ ; Start 01/13/20 at 17:00 Dextrose (Dextrose 50%-Water Syringe) 12.5 gm PRN Q15MIN PRN IV SEE COMMENTS; Start 01/13/20 at 13:30 Active Scripts Active Reported Humalog (Insulin Lispro) 100 Unit/1 Ml Vial 100 Unit SQ TIDBFRMEAL Lantus Solostar (Insulin Glargine,Hum.rec.anlog) 100 Unit/1 Ml Insuln.pen 35 Unit SQ BID Amlodipine Besylate 10 Mg Tablet 10 Mg PO DAILY Mirapex (Pramipexole Di-Hcl) 0.25 Mg Tablet 0.25 Mg PO DAILY Diazepam 10 Mg Tablet 10 Mg PO QPM Losartan Potassium 100 Mg Tablet 100 Mg PO DAILY Furosemide 20 Mg Tablet 20 Mg PO DAILY Vitals/I & O Vital Sign - Last 24 Hours 01/12/20 01/12/20 01/12/20 01/12/20 15:00 16:00 16:20 19:35 Temp 98.6 98.6 Pulse 92 94 89 Resp 14 13 18 B/P (MAP) 152/69 (96) 145/62 (89) 139/80 (99) Pulse Ox 100 98 96 O2 Delivery Room Air Room Air Room Air Room Air 01/12/20 01/12/20 01/12/20 01/12/20 19:54 20:00 20:54 23:33 Temp 98.1 98.1 98.1 98.1 Pulse 97 102 Resp 20 19 20 19 B/P (MAP) 125/63 (83) 144/76 (98) Pulse Ox 97 94 O2 Delivery Room Air Room Air Room Air Room Air 01/13/20 01/13/20 01/13/20 01/13/20 04:00 08:00 08:00 08:38 Temp 98.1 98.3 98.1 98.3 Pulse 108 99 99 Resp 19 16 B/P (MAP) 163/80 (107) 176/88 (117) 176/88 Pulse Ox 96 97 O2 Delivery Room Air Room Air Room Air 01/13/20 11:00 Temp 98.4 98.4 Pulse 98 Resp 16 B/P (MAP) 128/62 (84) Pulse Ox 96 O2 Delivery Room Air Intake and Output 01/12/20 01/12/20 01/13/20 15:00 23:00 07:00 Intake Total 731.36 ml 3754.4 ml 1950 ml Output Total 820 ml 1275 ml Balance -88.64 ml 3754.4 ml 675 ml Justifications for Admission Other Justification ÁNGEL FATIMA MD Jan 13, 2020 14:02
[2020-01-13 15:00] VITALS: BP 132/63
[2020-01-13 19:00] VITALS: BP 115/67
[2020-01-13] MEDS: diazePAM 5 MG TABLET PO SCH (19:51)
[2020-01-13] MEDS: MORPHINE SULFATE 2 MG/ML VIAL. IV PRN (19:52)
[2020-01-13] MEDS: CYCLOBENZAPRINE 10 MG TABLET. PO PRN (21:30)
[2020-01-13 23:00] VITALS: BP 157/89
[2020-01-14 03:00] VITALS: BP 166/71
[2020-01-14] MEDS: CYCLOBENZAPRINE 10 MG TABLET. PO PRN (05:00)
[2020-01-14] MEDS: MORPHINE SULFATE 2 MG/ML VIAL. IV PRN (05:02)
[2020-01-14 07:24] LABS: ALBUMIN 1.3 g/dL (3.4-5.0); ALBUMIN/GLOBULIN RATIO 0.3 (1.0-1.7); CALCIUM 7.7 mg/dL (8.5-10.1); CREATININE 5.1 mg/dL (0.7-1.3); GFR 12.6; TOTAL BILIRUBIN 0.1 mg/dL (0.2-1.0); TOTAL PROTEIN 5.5 g/dL (6.4-8.2)
[2020-01-14 08:00] VITALS: BP 152/71
[2020-01-14] MEDS: INSULIN LISPRO 300 UNITS/3 ML VIAL. SQ SCH ×6 (08:00→17:45)
[2020-01-14] MEDS: LACTOBACILLUS RHAMNOSUS GG 1 CAPSULE. PO SCH ×2 (08:45→21:53)
[2020-01-14] MEDS: PRAMIPEXOLE 0.25 MG TABLET. PO SCH (08:45)
[2020-01-14] MEDS: IV DEXTROSE 5 %-0.45 % NACL 1,000 ML IV SCH (08:46)
[2020-01-14] MEDS: amLODIPine BESYLATE 10 MG TABLET PO SCH (08:48)
[2020-01-14] MEDS: INSULIN GLARGINE SYRINGE. SQ SCH ×2 (08:51→21:00)
--- NOTE | 2020-01-14 09:46 | NUR ---
SW following. Discussed with RN, pt from home, room air, ADA diet. Med Assist following for self pay status. Pt wanting to discharge home. SW will continue to follow.
[2020-01-14 11:00] VITALS: BP 133/77
[2020-01-14] MEDS ORDERED: INSU100I41 SQ (12:18)
--- NOTE | 2020-01-14 12:20 | DISCH ---
DISCHARGE INSTRUCTIONS Condition on Discharge Condition on Discharge: Guarded Activity After Discharge Activity Instructions for Disc: Activity as tolerated Diet after Discharge Diet after Discharge: Renal Non-Dialysis, Diabetic No Calorie Level Checks after Discharge Checks after discharge: Check blood sugar, ac/hs Follow-Up Follow up with: PCP within 1 week of discharge for diabetes management Follow Up With: Nephrology for management of your kidney disease LEILA REBOLLAR MD Jan 14, 2020 12:20
--- NOTE | 2020-01-14 14:34 | PDOC ---
[employer] PROGRESS NOTE Date of Service DOS: DATE: 01/14/20 TIME: 14:30 Chief Complaint Chief Complaint Severe HHS Methamphetamine abuse Severe protein malnutrition Diabetes type I since age 8, uncontrolled Acute on chronic kidney injury, CKD stage II Medical nonadherence Tobacco use Appreciate nephrology recommendation-continue IV fluids and monitor renal function Pending protein collection for urinary analysis. Continue insulin glargine 35 units subcu twice daily, lispro 10 units 3 times daily with meals, and moderate R ISS Accu-Cheks every 6 Lovenox for DVT prophylaxis ADA diet Full code Discussed with RN and SW Disposition pending nephrology evaluation will adjust insulin to 70/30 for financial reasons. Surrogate decision maker is the self History of Present Illness History of Present Illness 01/12/2020 Patient seen and examined in the ICU His glucose is finally down to normal (was as high as 1864 yesterday) Chart reviewed Discussed with RN 01/13/2020 No acute events overnight. Patient transferred from the ICU. Clinically stable. Patient seen and examined bedside. Complains only of back pain at this time. Patient currently is unemployed and is reviewing unemployment benefits at this time. Our concern is that he is unable to afford Lantus once the patient is discharged. We will work with the patient and possibly with social media specialist to help him with medications. Patient's chart, labs, images were reviewed and discussed with RN 01/14/2020 No acute events overnight. Patient appears to be in better spirits. Patient seen and examined bedside. No complaints at this time. Patient is tolerating diet. Patient is ready to go home and is amenable to using NovoLog FlexPen to control his diabetes while he gets evaluated with his PCP again. Patient's chart, labs, images were reviewed and discussed with RN Vitals/I&O Vitals/I&O: Vital Signs Date Time Temp Pulse Resp B/P (MAP) Pulse Ox O2 Delivery O2 Flow Rate FiO2 01/14/20 11:00 98.3 91 18 133/77 (95) 97 Room Air 98.3 I & O 01/13/20 01/13/20 01/14/20 15:00 23:00 07:00 Intake Total 180 ml 240 ml 1390 ml Output Total 2775 ml 2850 ml Balance -2595 ml 240 ml -1460 ml Physical Exam Physical Exam: GEN: No apparent distress. Alert and oriented HEENT: Normal cephalic, atraumatic, external auditory canals are patent NECK: Supple, no JVD, no thyromegaly was noted LUNGS: Bilateral crackles HEART: RRR, S1, S2 present. Peripheral pulses intact, no obvious murmurs noted ABDOMEN: Soft, nontender. Positive bowel sounds, no organomegaly, normal bowel sounds EXTREMITIES: Without clubbing, cyanosis, or edema. Pedal pulses intact. Negative Homans sign General: Alert, Oriented X3, Cooperative, No acute distress Heart: Regular rate, Normal S1, Normal S2, No murmurs, Gallops Lungs: Clear Abdomen: Normal bowel sounds, Soft, No tenderness, No hepatosplenomegaly, No masses Extremities: No clubbing, No cyanosis, No edema, Normal pulses, No tenderness/swelling Skin: No rashes Labs Labs: Laboratory Tests Test 01/13/20 17:17 01/13/20 21:18 01/14/20 06:36 01/14/20 07:21 Glucose (Fingerstick) 119 mg/dL (70-99) 126 mg/dL (70-99) 52 mg/dL (70-99) Sodium Level 137 mmol/L (136-145) Potassium Level 4.0 mmol/L (3.5-5.1) Chloride Level 103 mmol/L (98-107) Carbon Dioxide Level 28 mmol/L (21-32) Anion Gap 6 (6-14) Blood Urea Nitrogen 67 mg/dL (8-26) Creatinine 5.1 mg/dL (0.7-1.3) Estimated GFR (Cockcroft-Gault) 12.6 BUN/Creatinine Ratio 13 (6-20) Glucose Level 56 mg/dL (70-99) Calcium Level 7.7 mg/dL (8.5-10.1) Total Bilirubin 0.1 mg/dL (0.2-1.0) Aspartate Amino Transf (AST/SGOT) 47 U/L (15-37) Alanine Aminotransferase (ALT/SGPT) 58 U/L (16-63) Alkaline Phosphatase 106 U/L (46-116) Total Protein 5.5 g/dL (6.4-8.2) Albumin 1.3 g/dL (3.4-5.0) Albumin/Globulin Ratio 0.3 (1.0-1.7) Test 01/14/20 07:55 01/14/20 11:34 Glucose (Fingerstick) 91 mg/dL (70-99) 137 mg/dL (70-99) Assessment and Plan Assessmemt and Plan Problems Medical Problems: (1) Acute renal failure Status: Acute (2) Anemia Status: Acute (3) DKA (diabetic ketoacidoses) Status: Acute Comment Review of Relevant I have reviewed the following items brandy (where applicable) has been applied. Medications: Current Medications Medications (Trade) Dose Ordered Sig/Stuart Route PRN Reason Start Time Stop Time Status Last Admin Dose Admin Cyclobenzaprine HCl (Flexeril) 5 mg PRN Q8HRS PRN PO MUSCLE SPASMS 01/13/20 19:30 01/14/20 05:00 Justifications for Admission Other Justification LEILA REBOLLAR MD Jan 14, 2020 14:34
[2020-01-14] MEDS ORDERED: IV NORMAL SALINE 1000ML BAG 1,000 ML IV ONE (14:45)
--- NOTE | 2020-01-14 15:18 | PDOC ---
Renal-Progress Notes Subjective Notes Notes NO NEW COMPLAINTS History of Present Illness Hx of present illness STABLE Vitals Vitals Vital Signs Date Time Temp Pulse Resp B/P (MAP) Pulse Ox O2 Delivery O2 Flow Rate FiO2 01/14/20 11:00 98.3 91 18 133/77 (95) 97 Room Air 98.3 Weight Weight [ ] I.O. Intake and Output Intake and Output 01/14/20 06:59 Intake Total 1810 ml Output Total 5625 ml Balance -3815 ml Intake Oral 660 ml IV Total 600 ml Other 550 ml Output Urine Total 5625 ml Labs Labs Laboratory Tests Test 01/13/20 17:17 01/13/20 21:18 01/14/20 06:36 01/14/20 07:21 Glucose (Fingerstick) 119 mg/dL (70-99) 126 mg/dL (70-99) 52 mg/dL (70-99) Sodium Level 137 mmol/L (136-145) Potassium Level 4.0 mmol/L (3.5-5.1) Chloride Level 103 mmol/L (98-107) Carbon Dioxide Level 28 mmol/L (21-32) Anion Gap 6 (6-14) Blood Urea Nitrogen 67 mg/dL (8-26) Creatinine 5.1 mg/dL (0.7-1.3) Estimated GFR (Cockcroft-Gault) 12.6 BUN/Creatinine Ratio 13 (6-20) Glucose Level 56 mg/dL (70-99) Calcium Level 7.7 mg/dL (8.5-10.1) Total Bilirubin 0.1 mg/dL (0.2-1.0) Aspartate Amino Transf (AST/SGOT) 47 U/L (15-37) Alanine Aminotransferase (ALT/SGPT) 58 U/L (16-63) Alkaline Phosphatase 106 U/L (46-116) Total Protein 5.5 g/dL (6.4-8.2) Albumin 1.3 g/dL (3.4-5.0) Albumin/Globulin Ratio 0.3 (1.0-1.7) Test 01/14/20 07:55 01/14/20 11:34 Glucose (Fingerstick) 91 mg/dL (70-99) 137 mg/dL (70-99) Review of Systems Constitutional: yes: alert, oriented Ears/Nose/Throat: Yes: no symptom reported Eyes: Yes: no symptom reported Pulmonary: Yes no symptom reported Cardiovascular: Yes no symptom reported Genitourinary: Yes: no symptom reported Musculoskeletal: Yes: no symptom reported Skin: Yes no symptom reported Psychiatric/Neurological: Yes: no symptom reported Endocrine: Yes: no symptom reported Physical Exam General Appearance: no apparent distress Skin: warm Respiratory: bilateral CTA Heart: S1S2 Abdomen: soft, bowel sounds present Genitourinary: bladder flat Extremities: pulses present, no edema, atrophy Neurology: alert, oriented Assessment Assessment IMP JENNIFER ATOP CKD-BASELINE UNKNOWN-IMPROVING METH ABUSE DM I NON COMPLIANCE PLAN CONT WITH HYDRATION IF RENAL FXN TRENDS BETTER THEN PROB OK FOR D/C TOMORROW WILL FOLLOW SHANDA ABAD MD Jan 14, 2020 15:18
[2020-01-14 16:00] VITALS: BP 139/79
[2020-01-14] MEDS: diazePAM 5 MG TABLET PO SCH (17:40)
[2020-01-14 20:00] VITALS: BP 177/81
[2020-01-14] MEDS ORDERED: ACETAMINOPHEN 325 MG TABLET. PO PRN (21:45)
[2020-01-14] MEDS ORDERED: tiZANidine 4 MG TABLET. PO PRN (21:45)
[2020-01-14 23:26] VITALS: BP 133/78
[2020-01-15] MEDS: MORPHINE SULFATE 2 MG/ML VIAL. IV PRN ×2 (00:17→08:36)
[2020-01-15 03:46] VITALS: BP 158/84
[2020-01-15 05:10] LABS: CALCIUM 7.6 mg/dL (8.5-10.1); GFR 12.9; POTASSIUM 4.4 mmol/L (3.5-5.1)
[2020-01-15 07:00] VITALS: BP 163/92
[2020-01-15] MEDS: INSULIN LISPRO 300 UNITS/3 ML VIAL. SQ SCH ×4 (08:00→12:00)
[2020-01-15 08:35] VITALS: BP 163/92
[2020-01-15] MEDS: LACTOBACILLUS RHAMNOSUS GG 1 CAPSULE. PO SCH (08:35)
[2020-01-15] MEDS: CYCLOBENZAPRINE 10 MG TABLET. PO PRN (08:35)
[2020-01-15] MEDS: PRAMIPEXOLE 0.25 MG TABLET. PO SCH (08:35)
[2020-01-15] MEDS: amLODIPine BESYLATE 10 MG TABLET PO SCH (08:35)
[2020-01-15] MEDS: IV DEXTROSE 5 %-0.45 % NACL 1,000 ML IV SCH (08:36)
--- NOTE | 2020-01-15 09:22 | NUR ---
Pt is 40 y/o male admitted with DKA. Reporting he can't get up to [facility]. Requested pt/ot [facility]AL [facility] TREAT orders. Await orders to initiate therapy services. Addendum: 01/15/20 at 921 by GINA DURHAM PT Amended: Links added.
--- NOTE | 2020-01-15 09:32 | NUR ---
[facility] following. Discussed with RN and Dr. Dalal - PAT referral for Meth use. SW notified PAT of referral. Anticipate possible discharge home today.
[2020-01-15] MEDS: INSULIN GLARGINE SYRINGE. SQ SCH (12:31)
--- NOTE | 2020-01-15 14:21 | PDOC ---
Renal-Progress Notes Subjective Notes Notes NO NEW COMPLAINTS History of Present Illness Hx of present illness STABLE Vitals Vitals Vital Signs Date Time Temp Pulse Resp B/P (MAP) Pulse Ox O2 Delivery O2 Flow Rate FiO2 01/15/20 09:06 Room Air 01/15/20 08:35 89 163/92 01/15/20 07:00 97.9 18 97 97.9 Weight Weight [ ] I.O. Intake and Output Intake and Output 01/15/20 07:00 Intake Total 1200 ml Output Total 1600 ml Balance -400 ml IV Total 600 ml Other 600 ml Output Urine Total 1600 ml # Voids 5 Labs Labs Laboratory Tests Test 01/14/20 16:22 01/14/20 17:14 01/14/20 20:25 01/14/20 20:45 Glucose (Fingerstick) 63 mg/dL (70-99) 122 mg/dL (70-99) 49 mg/dL (70-99) Glucose Level 89 mg/dL (70-99) Test 01/14/20 20:50 01/15/20 04:42 01/15/20 07:37 01/15/20 11:02 Glucose (Fingerstick) 102 mg/dL (70-99) 89 mg/dL (70-99) 145 mg/dL (70-99) Sodium Level 137 mmol/L (136-145) Potassium Level 4.4 mmol/L (3.5-5.1) Chloride Level 103 mmol/L (98-107) Carbon Dioxide Level 26 mmol/L (21-32) Anion Gap 8 (6-14) Blood Urea Nitrogen 62 mg/dL (8-26) Creatinine 5.0 mg/dL (0.7-1.3) Estimated GFR (Cockcroft-Gault) 12.9 Glucose Level 108 mg/dL (70-99) Calcium Level 7.6 mg/dL (8.5-10.1) Review of Systems Constitutional: yes: alert, oriented Ears/Nose/Throat: Yes: no symptom reported Eyes: Yes: no symptom reported Pulmonary: Yes no symptom reported Cardiovascular: Yes no symptom reported Genitourinary: Yes: no symptom reported Musculoskeletal: Yes: no symptom reported Skin: Yes no symptom reported Psychiatric/Neurological: Yes: no symptom reported Endocrine: Yes: no symptom reported Physical Exam General Appearance: no apparent distress Skin: warm Respiratory: bilateral CTA Heart: S1S2 Abdomen: soft, bowel sounds present Genitourinary: bladder flat Extremities: pulses present, no edema, atrophy Neurology: alert, oriented Assessment Assessment IMP JENNIFER ATOP CKD-BASELINE [id number]-BD STABLE AT 5.0 METH ABUSE DM I NON COMPLIANCE PLAN OK TO D/C FROM RENAL STANDPOINT HE HAS STAGE 4 TO STAGE 5 CKD. LYTES AND ACID BASE BALANCE STABLE NO UREMIA SYMPTOMS ENC ABSTINENCE FROM DRUG USE ENC OFFICE F/U WITH US SHANDA ABAD MD Jan 15, 2020 14:21
--- NOTE | 2020-01-15 15:23 | NUR ---
Pt discharged home with self care. Discharge instructions discussed. Pt and family state his wallet is here. We were unable to locate a wallet pt ID in his pocket. IV removed. Pt assisted to wheelchair and was taken to main entrance and secured in car with transportation.
--- NOTE | 2020-01-15 18:37 | PDOC3 ---
[facility]-Discharge Summary Date of Admission: Date of Admission: Jan 11, 2020 Date of Discharge: Date of Discharge: Jan 15, 2020 Admission Diagnosis: Admitting Diagnosis: Severe hyperglycemia with severe hyponatremia Discharge Diagnosis: Discharge Diagnosis: Severe HHS Methamphetamine abuse Severe protein malnutrition Diabetes type I since age 8, uncontrolled Acute on chronic kidney injury, CKD stage II Medical nonadherence Tobacco use Consults: Consults: Nephrology Hospital Course: Hospital Course: 40-year-old male who does not take his insulin. He came to the ER with severely high glucose. It is actually the highest I have seen at 1864. Surprisingly, he does not have an anion gap metabolic acidosis. He does have severe profound hyponatremia with a sodium of 107. I discussed the case with ER physician. We are going to admit the patient with DKA protocol on insulin drip and IV fluids. Patient was admitted for further care and IV insulin for his uncontrolled diabetes. Patient adequately hydrated intravenously and his glucose levels improved. He was evaluated by nephrology for his JENNIFER and was told he may need HD if his Cr did not improve. Patient's Cr levels remained stable throughout his hospital stay and his UOP was adequate. Patient will need to have close follow up for his renal fxn and his diabetes management. Patient was prescribed Novolin 50U 70/30 for financial indications. Extensive discussion was held in o [facility] for him to obtain his insulin and to see his PCP for diabetic management. He was also evaluated by the PAT team, and he did not need any inpatient psych observation and he refused all services offered. The rest of the hospital course was uneventful Disposition: Disposition/Orders: D/C to Home Activity: Activity: Resume previous activity Diet: Diet: Consistent Carbohydrate Medications: Home Meds Active Scripts Insulin NPH Hum/Reg Insulin Hm (Novolin 70-30 Flexpen) 100 Unit/1 Ml Insuln.pen, 50 UNIT SQ BID for diabetes type 1 for 30 Days, #60 EACH Prov:LEILA REBOLLAR MD 01/14/20 Reported Medications Amlodipine Besylate (AMLODIPINE BESYLATE) 10 Mg Tablet, 10 MG PO DAILY for Hypertension , TAB 01/12/20 Pramipexole Di-Hcl (MIRAPEX) 0.25 Mg Tablet, 0.25 MG PO DAILY for Neuropathy , TAB 01/12/20 Diazepam (DIAZEPAM) 10 Mg Tablet, 10 MG PO QPM for Anxiety , TAB 01/12/20 Losartan Potassium (LOSARTAN POTASSIUM) 100 Mg Tablet, 100 MG PO DAILY for HYPERTENSION, TAB 01/12/20 Discontinued Reported Medications Insulin Lispro (HUMALOG) 100 Unit/1 Ml Vial, 100 UNIT SQ TIDBFRMEAL for Diabetes Mellitus Type 1, VIAL 01/12/20 Insulin Glargine,Hum.rec.anlog (LANTUS SOLOSTAR) 100 Unit/1 Ml Insuln.pen, 35 UNIT SQ BID for Diabetes Mellitus Type 1 , #15 ML 3 Refills 01/12/20 Furosemide (FUROSEMIDE) 20 Mg Tablet, 20 MG PO DAILY for diuretic , TAB 01/12/20 Scheduled Amlodipine Besylate (Amlodipine Besylate), 10 MG PO DAILY, (Reported) Diazepam (Diazepam), 10 MG PO QPM, (Reported) Insulin NPH Hum/Reg Insulin Hm (Novolin 70-30 Flexpen), 50 UNIT SQ BID Losartan Potassium (Losartan Potassium), 100 MG PO DAILY, (Reported) Pramipexole Di-Hcl (Mirapex), 0.25 MG PO DAILY, (Reported) Discontinued Medications Furosemide (Furosemide), 20 MG PO DAILY, (Reported) Insulin Glargine,Hum.rec.anlog (Lantus Solostar), 35 UNIT SQ BID, (Reported) Insulin Lispro (Humalog), 100 UNIT SQ TIDBFRMEAL, (Reported) Total Time: Total Time: Total time spent was 45 minutes in preparing scripts, discharge planning with SW and RN, and preparing this discharge summary. Justicifation of Admission Dx: Justifications for Admission: Justification of Admission Dx: Yes Acute Renal Failure: 3-Fold Rise in Serum Crea DKA: DKA LEILA REBOLLAR MD Jan 15, 2020 18:37
== END 2020-01-15 15:28 | disposition home or self-care (01) | DRG 637 ==
LOC: ER 13:08 → 1 WEST ICU 16:44 → 4 NORTH 01-12 16:29
PROVIDERS: ADMIT Internal Medicine; ATTEND Internal Medicine
DX: E10.10 Type 1 diabetes mellitus with ketoacidosis without coma (principal); E43 Unspecified severe protein-calorie malnutrition; E87.1 Hypo-osmolality and hyponatremia; N17.9 Acute kidney failure, unspecified; E10.40 Type 1 diabetes mellitus with diabetic neuropathy, unspecified; F17.210 Nicotine dependence, cigarettes, uncomplicated; F15.10 Other stimulant abuse, uncomplicated; N18.2 Chronic kidney disease, stage 2 (mild); E10.22 Type 1 diabetes mellitus with diabetic chronic kidney disease; Z68.23 Body mass index [BMI] 23.0-23.9, adult; Z79.4 Long term (current) use of insulin; Z88.1 Allergy status to other antibiotic agents; Z91.19 Patient's noncompliance with other medical treatment and regimen; Z83.3 Family history of diabetes mellitus
CPT/HCPCS: 36415; 76770; 80048; 80053; 80307; 81001; 82010; 82947; 82962; 83690; 83735; 83930; 84100; 85007; 85025; 85027; 93005; 96361; 96365; 96366; 96375; 99285; G0480; J0360; J1815; J1956; J2270; J2405; J3480; J3490; J7030; J7042; G0378